=== PATIENT | male | born 1940 | race Caucasian/White ===

== ENCOUNTER 2020-04-11 08:06 | Outpatient (CLI) | payer MEDICARE, BC, OTHER ==
[2020-04-12 16:48] LABS: SARS-CoV-2 MS2 Positive; SARS-CoV-2 N Gene Negative; SARS-CoV-2 S Gene Negative; SARS-CoV-2 orf1ab Negative
== END 2020-04-11 08:07 | disposition home or self-care (01) ==
LOC: LABBT 08:06
PROVIDERS: ATTEND Family Medicine
DX: Z01.812 Encounter for preprocedural laboratory examination (principal); Z11.59 Encounter for screening for other viral diseases
CPT/HCPCS: 87635; U0003

== ENCOUNTER 2020-04-15 07:12 | Day surgery (SDC) | payer MEDICARE, BC ==
[2020-04-11 13:06] VITALS: BMI 25.1
[2020-04-15] MEDS ORDERED: EPINEPHrine 0.3 MG in Ophthalmic Irrigation Solution 500 ML IRR SCH (07:31)
[2020-04-15] MEDS ORDERED: Fentanyl 100 MCG/2 ML VIAL ONE (08:05)
[2020-04-15] MEDS ORDERED: Midazolam HCl 2 mg/2 ml Vial ONE (08:05)
[2020-04-15] MEDS ORDERED: Cyclopentolate 1% Opth Drop 2 ML BOT ONE (08:18)
[2020-04-15] MEDS ORDERED: Phenylephrine 2.5% Ophth Soln 5 ML BOT ONE (08:18)
[2020-04-15] MEDS ORDERED: Lidocaine 1% PF 5 ML VIAL ONE ×2 (10:04)
[2020-04-15] MEDS ORDERED: Triamcinolone 40 MG/ML VIAL ONE (10:04)
[2020-04-15] MEDS ORDERED: Bupivacaine PF 0.75% SDV 10 ML ONE (10:04)
[2020-04-15] MEDS ORDERED: Lidocaine 4% PF 5 ML AMP ONE (10:04)
[2020-04-15] MEDS ORDERED: PROPOFOL 200 MG/20 ML VIAL ONE (10:04)
[2020-04-15] MEDS ORDERED: CEFAZOLIN 1 GM VIAL ONE (10:04)
[2020-04-15] MEDS ORDERED: Maxitrol 0.1% Opth Oint 3.5 GM TUBE ONE (10:04)
[2020-04-15] MEDS ORDERED: Ibuprofen 600 MG TAB PO SCH (14:00)
--- NOTE | 2020-04-15 16:46 | OP ---
DATE OF PROCEDURE: 04/15/2020 PRINCIPAL PREOPERATIVE DIAGNOSIS: Posterior dislocated intraocular lens, right eye. POSTOPERATIVE DIAGNOSIS: Posterior dislocated intraocular lens, right eye. PROCEDURES PERFORMED: 1. 25-gauge pars plana vitrectomy, right eye. 2. Intraocular lens removal, right eye. 3. Akreos +19.0 diopter lens insertion, right eye. ESTIMATED BLOOD LOSS: None. SPECIMENS REMOVED: None. COMPLICATIONS: None. ANESTHESIA: LMA. SUMMARY OF OPERATION: The patient was identified in the preoperative holding area, where the correct eye being the right eye was marked for surgery. The patient was taken to the operating room, where general anesthesia was induced. The right eye was prepped and draped in usual sterile ophthalmic fashion for surgery. A wire clip lid speculum was placed. A conjunctival peritomy was fashioned from 6 o'clock to 3 o'clock. This was done with Renetta scissors. The sclera was marked at approximately 2 o'clock and 8 o'clock. The limbus was marked at 2 o'clock and 8 o'clock. Subsequently, mcintosh were placed centrally at 2 o'clock and 8 o'clock, 3 mm posterior to the limbus. Two separate mcintosh were placed 2.5 mm from that location along the curvature of the cornea. Subsequently, a 25-gauge cannula was inserted into the sclera via stab incision parallel to the limbus. A subsequent stab incision was performed at location 2.5 mm from the central location. The same set up was performed at 2 o'clock. An infusion was placed inferiorly 3.5 mm from the limbus. The infusion noted to be within the vitreous cavity prior to being turned on to an infusion pressure of 30 mmHg. The light pipe microvitrector was inserted in the eye under visualization of the BIOM viewing system. A careful core vitrectomy and peripheral shave vitrectomy were performed with the assistance of Dee. Great care was taken to relieve all vitreous from the lens. Following completion of vitrectomy, a superotemporal scleral tunnel was created with the crescent blade followed by entering the eye with the keratome. The wound was approximately 6 mm in length. The intraocular lens was subsequently grasped with MaxGrip forceps and subsequently vaulted anteriorly and taken out through the eye through the scleral tunnel. Great care prior to removal of the lens was taken to cover the cornea with Viscoat to protect the corneal endothelium. The Akreos lens +19.0 diopters was brought to the field and subsequently 8-0 Peytona-Alfredito suture was taken with . The sutures were passed through the Peytona-Alfredito suture to create a basket configuration. The lens was inserted to the eye and the sutures were removed through the pre-placed site at 2 o'clock and 8 o'clock. The suture for the lens was subsequently tied in a 3-1-1 fashion on each side and the knot was buried through a sclerotomy. The cannulas were sequentially removed and all sclerotomies were noted to be watertight. The intraocular lens was noted to have good centration. Two 8-0 Vicryl sutures were placed along the scleral tunnel to assist with closure. All wounds were noted to be watertight. The conjunctiva was subsequently closed with interrupted 8-0 sutures. Subconjunctival Ancef and Kenalog were injected. The wire clip lid speculum was removed followed by the application of TobraDex ophthalmic ointment and a light patch and shield. The patient tolerated the procedure well and was taken to outpatient recovery area in good condition. Job ID: [id number]
== END 2020-04-15 14:22 | disposition home or self-care (01) ==
LOC: SDC 07:12
PROVIDERS: ATTEND Ophthalmology Retina Specialist
PROC: 08T43ZZ Resection of Right Vitreous, Percutaneous Approach (ICD-10-PCS; principal; 2020-04-15)
PROC: 08DJ3ZZ Extraction of Right Lens, Percutaneous Approach (ICD-10-PCS; 2020-04-15)
PROC: 08PJ3JZ Removal of Synthetic Substitute from Right Lens, Percutaneous Approach (ICD-10-PCS; 2020-04-15)
PROC: 08RJ3JZ Replacement of Right Lens with Synthetic Substitute, Percutaneous Approach (ICD-10-PCS; 2020-04-15)
DX: H27.131 Posterior dislocation of lens, right eye (principal); I10 Essential (primary) hypertension; F03.90 Unspecified dementia, unspecified severity, without behavioral disturbance, psychotic disturbance, mood disturbance, and anxiety; Z87.891 Personal history of nicotine dependence; Z79.899 Other long term (current) drug therapy
CPT/HCPCS: J0171; J0690; J2001; J2250; J2704; J3010; J3301; J3490; V2632

== ENCOUNTER 2020-05-06 07:58 | Day surgery (SDC) | payer MEDICARE, BC ==
[2020-05-06] MEDS ORDERED: Cyclopentolate 1% Opth Drop 2 ML BOT ONE (08:07)
[2020-05-06] MEDS ORDERED: Phenylephrine 2.5% Ophth Soln 5 ML BOT ONE (08:07)
[2020-05-06] MEDS ORDERED: EPINEPHrine 0.3 MG in Ophthalmic Irrigation Solution 500 ML IRR SCH ×2 (08:08→08:15)
[2020-05-06] MEDS ORDERED: Phenylephrine 2.5% Ophth Soln 5 ML BOT FS SCH (08:08)
[2020-05-06] MEDS ORDERED: Cyclopentolate 1% Opth Drop 2 ML BOT FS SCH (08:08)
[2020-05-06] MEDS ORDERED: Fentanyl 100 MCG/2 ML VIAL ONE (09:28)
--- NOTE | 2020-05-06 13:39 | OP ---
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 PROCEDURES PERFORMED: 1. A 25-gauge pars plana vitrectomy, right eye. 2. Rhegmatogenous retinal detachment repair, right eye. 3. Endolaser, right eye. 4. 15% SF6 fill, right eye. ESTIMATED BLOOD LOSS: None. SPECIMENS REMOVED: None. COMPLICATIONS: None. ANESTHESIA: LMA with sub-Tenon's block. DESCRIPTION OF PROCEDURE: The patient was identified in the preoperative holding area, where the correct eye being the right eye was marked for surgery. The patient was taken to the operating room, where general anesthesia was induced. The right eye was prepped and draped in the usual sterile ophthalmic fashion for surgery. A wire-clip lid speculum was placed. A standard 25-gauge pars plana vitrectomy platform was fashioned with trocars placed approximately 3.5 mm from the limbus. Great care was taken to avoid all prior surgical sites. The infusion was noted to be within the vitreous cavity prior to being turned on to infusion pressure of 30 mmHg. The light pipe microvitrector was introduced in the eye under visualization of the BIOM viewing system. A macula involving the fovea on rhegmatogenous retinal detachment was noted from approximately 1 o'clock to 12 o'clock. A 360-degree scleral depressed vitrectomy was performed. Despite numerous scleral depressed exam of the periphery, no defects were found. A superotemporal drainage retinotomy was created with Endo-cautery, followed by opening with a flute needle. An air-fluid exchange was subsequently performed, which allowed for complete flattening of the retina. Endolaser was used to provide barricade around the retinotomy site as well as provide barrier laser system throughout the periphery of the retina. Great care was taken to provide generous panretinal photocoagulation in the superior retina, where the defect would be presumed to be found. Following Endolaser, the flute needle was reintroduced in the eye to remove the residual subretinal fluid. An air-gas exchange was performed with 15% SF6. The cannulas were sequentially removed and the supranasal, inferotemporal sclerotomies were sutured with 8-0 Vicryl suture. Following suturing, all sclerotomies were noted to be gas tight. A sub-Tenon's block was administered. The block consisted of 1:1 ratio of 4% lidocaine and 0.75% Marcaine. A total of 5 mL was administered. Subconjunctival Ancef and Kenalog were injected. The wire-clip lid speculum was removed followed by application of TobraDex ophthalmic ointment and a light patch and shield. The patient tolerated the procedure well and was taken to the outpatient recovery area in good condition. Job ID: [id number]
[2020-05-06] MEDS ORDERED: Maxitrol 0.1% Opth Oint 3.5 GM TUBE ONE (15:21)
[2020-05-06] MEDS ORDERED: Bupivacaine PF 0.75% SDV 10 ML ONE (15:21)
[2020-05-06] MEDS ORDERED: PROPOFOL 200 MG/20 ML VIAL ONE (15:21)
[2020-05-06] MEDS ORDERED: CEFAZOLIN 1 GM VIAL ONE (15:21)
[2020-05-06] MEDS ORDERED: Lidocaine 1% PF 5 ML VIAL ONE ×2 (15:21)
[2020-05-06] MEDS ORDERED: Ondansetron PF 4 MG/2 ML Vial ONE (15:21)
[2020-05-06] MEDS ORDERED: Lidocaine 4% PF 5 ML AMP ONE (15:21)
[2020-05-06] MEDS ORDERED: Triamcinolone 40 MG/ML VIAL ONE (15:21)
[2020-05-06] MEDS ORDERED: Metoclopramide HCl 10 MG/2 ML VIAL ONE (15:21)
== END 2020-05-06 12:30 | disposition home or self-care (01) ==
LOC: SDC 07:58
PROVIDERS: ATTEND Ophthalmology Retina Specialist
PROC: 08T43ZZ Resection of Right Vitreous, Percutaneous Approach (ICD-10-PCS; principal; 2020-05-06)
PROC: 08QE3ZZ Repair Right Retina, Percutaneous Approach (ICD-10-PCS; 2020-05-06)
DX: H33.011 Retinal detachment with single break, right eye (principal)
CPT/HCPCS: 67025; J0171; J0690; J2001; J2405; J2704; J2765; J3010; J3301; J3490

== ENCOUNTER 2021-04-09 15:45 | Outpatient (CLI) | payer MEDICARE, BC ==
[2021-04-10 13:03] LABS: SARS-CoV-2 PCR by NAA Not Detected (NotDetected)
== END 2021-04-09 15:46 | disposition home or self-care (01) ==
LOC: LABBT 15:45
PROVIDERS: ATTEND Ophthalmology Retina Specialist
DX: Z01.812 Encounter for preprocedural laboratory examination (principal); T85.22XA Displacement of intraocular lens, initial encounter; Z20.822 Contact with and (suspected) exposure to COVID-19
CPT/HCPCS: U0003; U0005

== ENCOUNTER 2021-04-14 11:01 | Day surgery (SDC) | payer MEDICARE, BC ==
[2021-04-13 15:42] VITALS: BMI 24.6
[~2021-04-14 11:01] MED LIST: EPINEPHrine 0.3 MG in Ophthalmic Irrigation Solution 500 ML IRR SCH; Famotidine/PF 20 mg/2ml Vial ONE; Fentanyl 100 MCG/2 ML VIAL ONE
[2021-04-14] MEDS ORDERED: Cyclopentolate 1% Opth Drop 2 ML BOT ONE (11:40)
[2021-04-14] MEDS ORDERED: Phenylephrine 2.5% Ophth Soln 5 ML BOT ONE (11:40)
[2021-04-14] MEDS ORDERED: CEFAZOLIN 1 GM VIAL ONE (14:28)
[2021-04-14] MEDS ORDERED: Ondansetron PF 4 MG/2 ML Vial ONE (14:28)
[2021-04-14] MEDS ORDERED: Metoclopramide HCl 10 MG/2 ML VIAL ONE (14:28)
[2021-04-14] MEDS ORDERED: Bupivacaine PF 0.75% SDV 10 ML ONE (14:28)
[2021-04-14] MEDS ORDERED: Lidocaine 4% PF 5 ML AMP ONE (14:28)
[2021-04-14] MEDS ORDERED: Triamcinolone 40 MG/ML VIAL ONE (14:28)
[2021-04-14] MEDS ORDERED: Lidocaine 1% PF 5 ML VIAL ONE ×2 (14:28)
[2021-04-14] MEDS ORDERED: PROPOFOL 200 MG/20 ML VIAL ONE (14:28)
[2021-04-14] MEDS ORDERED: Maxitrol 0.1% Opth Oint 3.5 GM TUBE ONE (14:28)
== END 2021-04-14 18:00 | disposition home or self-care (01) ==
LOC: SDC 11:01
PROVIDERS: ATTEND Ophthalmology Retina Specialist
PROC: 08PK3JZ Removal of Synthetic Substitute from Left Lens, Percutaneous Approach (ICD-10-PCS; principal; 2021-04-14)
PROC: 08RK3JZ Replacement of Left Lens with Synthetic Substitute, Percutaneous Approach (ICD-10-PCS; 2021-04-14)
DX: H27.132 Posterior dislocation of lens, left eye (principal); H43.392 Other vitreous opacities, left eye
CPT/HCPCS: 66986; V2632; J0171; J0690; J2405; J2704; J2765; J3010; J3301; J3490; S0028

== ENCOUNTER 2022-05-28 13:39 | Outpatient (CLI) | payer MEDICARE, BC | END 2022-05-28 13:40 | disposition home or self-care (01) | LOC: ULT 13:39 | PROVIDERS: ATTEND Internal Medicine Nephrology | DX: N18.30 Chronic kidney disease, stage 3 unspecified (principal); N28.1 Cyst of kidney, acquired; N40.0 Benign prostatic hyperplasia without lower urinary tract symptoms | CPT/HCPCS: 76770 ==

== ENCOUNTER 2024-11-10 19:33 | Inpatient (IN) | payer MEDICARE ==
[2024-11-10 20:48] LABS: #Basophils 0.03 10x3/uL (0.0-0.2); %Basophils 0.2 % (0.0-1.0); %Eosinophils 0.2 % (0.0-10.0); %Lymphocytes 9.8 % (21.0-51.0); %Monocytes 7.6 % (0.0-10.0); %Neutrophils 80.7 % (42.0-75.0); Hematocrit 39.2 % (42.0-52.0); Hemoglobin 13.2 g/dL (14.0-18.0); Mean Corpuscular HGB CONC 33.7 g/dL (32.0-36.0); Mean Corpuscular Hemoglobin 29.5 pg (27.0-31.0); Mean Corpuscular Volume 87.7 fL (78.0-98.0); Platelet Count 470 10x3/uL (130-400); RBC Distribution Width 14.6 % (11.5-14.5); Red Blood Cell (RBC) Count 4.47 mill/uL (4.70-6.10)
[2024-11-10] MEDS ORDERED: dilTIAZem 25 MG/5 ML VIAL ONE (20:57)
[2024-11-10] MEDS ORDERED: Magnesium 2 GM/50 ML BAG (IN WATER) ONE (20:57)
[2024-11-10 21:07] LABS: ALT (SGPT) 11 U/L (8-55); AST (SGOT) 15 U/L (5-34); Albumin 2.9 g/dL (3.4-4.8); Alkaline Phosphatase 69 U/L (40-110); Anion Gap 20 mmol/L (10-20); BUN (Urea Nitrogen) 78 mg/dL (8.4-25.7); Bilirubin, Total 0.5 mg/dL (0.2-1.2); Calc. Creatinine Clearance 0 mL/min (70-130); Calcium 9.6 mg/dL (7.8-10.44); Carbon Dioxide 15 mmol/L (23-31); Chloride 108 mmol/L (98-107); Estimated GFR 10; Globulin 5.1 g/dL (2.4-3.5); Glucose 126 mg/dL (83-110); Potassium 4.2 mmol/L (3.5-5.1); Sodium 139 mmol/L (136-145)
[2024-11-10 21:09] LABS: Troponin I 0.023 ng/mL (< 0.028)
[2024-11-10 22:19] LABS: Bilirubin Negative (Negative); Blood, Urine 3+ (Negative); CAUTI Indications for Culture Dysuria,urgency,freq; Clarity Turbid (Clear); Glucose, Urine (Dipstick) Normal (Negative); Ketone, Urine Negative (Negative); Leukocyte 500 Leu/uL (Negative); Nitrite Negative (Negative); Protein, Urine (Dipstick) 10 mg/dL (Neg-Trace); RBC/HPF Greater than 50 HPF (0-3); Specific Gravity, Urine 1.015 (1.002-1.036); Squamous Epithelial None Seen HPF (0-3); Urobilinogen Normal mg/dL (Less than 2); WBC/HPF 0-3 HPF (0-3)
[2024-11-10 22:28] LABS: Bacteria/HPF 1+ HPF (None Seen)
[2024-11-10 22:30] LABS: Urine Culture Reflex No No
[2024-11-10] MEDS ORDERED: Sodium Chloride 0.9% 100 ML ONE (23:26)
[2024-11-10] MEDS ORDERED: cefTRIAXone (ROCEPHIN) 2 GM VIAL ONE (23:26)
[2024-11-10 23:52] LABS: Lactic Acid 1.83 mmol/L (0.5-2.2)
[2024-11-11] MEDS ORDERED: Ondansetron PF 4 MG/2 ML Vial IVP PRN (01:47)
[2024-11-11] MEDS ORDERED: Ondansetron ODT 4 MG TAB PO PRN (01:47)
[2024-11-11] MEDS ORDERED: Azithromycin 500 MG VIAL ONE (01:53)
[2024-11-11] MEDS ORDERED: Ipratropium/Albuterol 3 ML NEB NEB PRN (02:44)
[2024-11-11] MEDS ORDERED: Heparin 25,000 units/D5W 500 ML ONE (03:22)
[2024-11-11] MEDS ORDERED: Sodium Bicarb 50 MEQ/50 ML Abboject 8.4% SYRINGE ONE (03:22)
[2024-11-11] MEDS ORDERED: Heparin 5,000 UNITS/ML VIAL ONE ×2 (03:22→03:24)
[2024-11-11] MEDS: Sodium Chloride 0.9% 1,000 ML IV SCH (03:29)
[2024-11-11] MEDS: Sodium Bicarb 50 MEQ/50 ML Abboject 8.4% SYRINGE IVP SCH (03:29)
[2024-11-11 03:36] LABS: #Basophils Less than 0.03 10x3/uL (0.0-0.2); %Basophils 0.1 % (0.0-1.0); %Eosinophils 0.2 % (0.0-10.0); %Lymphocytes 9.3 % (21.0-51.0); %Monocytes 8.1 % (0.0-10.0); %Neutrophils 80.7 % (42.0-75.0); Hematocrit 31.5 % (42.0-52.0); Hemoglobin 10.5 g/dL (14.0-18.0); Mean Corpuscular HGB CONC 33.3 g/dL (32.0-36.0); Mean Corpuscular Hemoglobin 29.6 pg (27.0-31.0); Mean Corpuscular Volume 88.7 fL (78.0-98.0); Platelet Count 377 10x3/uL (130-400); RBC Distribution Width 14.5 % (11.5-14.5); Red Blood Cell (RBC) Count 3.55 mill/uL (4.70-6.10)
[2024-11-11 03:38] LABS: Hematocrit 33.9 % (42.0-52.0); Hemoglobin 11.2 g/dL (14.0-18.0); Platelet Count 403 10x3/uL (130-400)
[2024-11-11 03:52] LABS: INR-International Normal Ratio 1.3; Prothrombin Time 16.7 sec (12.0-14.7)
[2024-11-11 03:53] LABS: PTT 31.8 sec (22.9-36.1)
[2024-11-11 03:59] LABS: Anion Gap 14 mmol/L (10-20); BUN (Urea Nitrogen) 51 mg/dL (8.4-25.7); Calc. Creatinine Clearance 19 mL/min (70-130); Calcium 8.1 mg/dL (7.8-10.44); Carbon Dioxide 17 mmol/L (23-31); Chloride 114 mmol/L (98-107); Estimated GFR 20; Glucose 93 mg/dL (83-110); Potassium 3.4 mmol/L (3.5-5.1); Sodium 142 mmol/L (136-145)
[2024-11-11] MEDS: Heparin 10,000 UNITS/ 10 ML VIAL SLOW IVP SCH (04:45)
[2024-11-11 04:50] LABS: Legionella Urinary Ag Negative (Negative); Strep pneumo Urine Ag NEGATIVE (NEGATIVE)
[2024-11-11] MEDS: Heparin 25,000 units/D5W 500 ML IVPB SCH (04:50)
[2024-11-11 09:09] LABS: PTT 214.6 sec (22.9-36.1)
[2024-11-11] MEDS: Potassium Chloride 20 MEQ TAB PO SCH (10:30)
[2024-11-11] MEDS: Memantine 10 MG TAB PO SCH (12:15)
[2024-11-11] MEDS: Gemfibrozil 600 MG TAB PO SCH (12:15)
[2024-11-11] MEDS: Aspirin 81 mg Enteric Coated Tablet PO SCH (12:15)
[2024-11-11] MEDS: Escitalopram Oxalate 20 mg Tablet PO SCH (12:15)
[2024-11-11] MEDS ORDERED: Aspirin 81 mg Enteric Coated Tablet ONE (14:43)
[2024-11-11] MEDS ORDERED: Potassium Bicarbonate/Cit Ac 20 MEQ TAB ONE (14:43)
[2024-11-11] MEDS ORDERED: Aspirin Chewable 81 MG TAB ONE (15:02)
[2024-11-11] MEDS: Sodium Chloride 1 GM TAB PO SCH (15:43)
[2024-11-11 18:46] VITALS: BMI 23.6
[2024-11-11] MEDS: Timolol 0.5% Ophth Soln 5 ml Bottle EA EYE SCH (21:31)
[2024-11-11] MEDS: Tamsulosin HCl 0.4 MG CAP PO SCH (21:32)
[2024-11-11] MEDS: Donepezil HCl 10 MG TAB PO SCH (21:32)
[2024-11-11] MEDS: Doxycycline 100 MG CAP PO SCH (21:32)
[2024-11-11] MEDS: cefTRIAXone\\ROCEPHIN 1 GM in Sodium Chloride 0.9% 100 ML IVPB SCH (23:15)
[2024-11-12 04:42] LABS: #Basophils Less than 0.03 10x3/uL (0.0-0.2); %Basophils 0.2 % (0.0-1.0); %Eosinophils 1.6 % (0.0-10.0); %Lymphocytes 11.3 % (21.0-51.0); %Monocytes 8.8 % (0.0-10.0); %Neutrophils 76.5 % (42.0-75.0); Hemoglobin 11.6 g/dL (14.0-18.0); Mean Corpuscular HGB CONC 34.1 g/dL (32.0-36.0); Mean Corpuscular Hemoglobin 29.6 pg (27.0-31.0); Mean Corpuscular Volume 86.7 fL (78.0-98.0); Mean Platelet Volume 9.4 fL (7.4-10.4); Platelet Count 411 10x3/uL (130-400); RBC Distribution Width 14.1 % (11.5-14.5); Red Blood Cell (RBC) Count 3.92 mill/uL (4.70-6.10)
[2024-11-12 05:25] LABS: Anion Gap 14 mmol/L (10-20); BUN (Urea Nitrogen) 16 mg/dL (8.4-25.7); Calc. Creatinine Clearance 71 mL/min (70-130); Calcium 8.2 mg/dL (7.8-10.44); Carbon Dioxide 21 mmol/L (23-31); Chloride 114 mmol/L (98-107); Estimated GFR 88; Glucose 94 mg/dL (83-110); Potassium 3.4 mmol/L (3.5-5.1); Sodium 146 mmol/L (136-145)
[2024-11-12] MEDS: Levothyroxine Sodium 25 MCG TAB PO SCH (05:51)
[2024-11-12] MEDS ORDERED: Electrolyte Replacement Protocol 1 EACH FS PRN (08:13)
[2024-11-12] MEDS ORDERED: Electrolyte Replacement Protocol FS PRN (08:30)
[2024-11-12] MEDS: Potassium Chloride 20 MEQ TAB PO SCH (08:46)
[2024-11-12] MEDS: Cholecalciferol 1,000 UNITS (25 MCG) TAB PO SCH (08:46)
[2024-11-12] MEDS: Pantoprazole 40 MG DR.TAB PO SCH (08:46)
[2024-11-12] MEDS: Cyanocobalamin (Vitamin B-12) 1,000 MCG TAB PO SCH (08:46)
[2024-11-12] MEDS ORDERED: Sodium Chloride 1 GM TAB PO SCH (09:31)
[2024-11-12 10:18] LABS: Magnesium 1.9 mg/dL (1.6-2.6)
[2024-11-12] MEDS: Magnesium 2 GM/50 ML(in water) 2 GM in Premix 1 BAG IVPB SCH (13:10)
[2024-11-12] MEDS: Dextrose 5% in Water 1,000 ML IV SCH (13:19)
[2024-11-12 14:28] VITALS: BMI 23.6
[2024-11-12 15:10] LABS: Potassium 3.7 mmol/L (3.5-5.1)
[2024-11-12 15:20] LABS: Phosphorus 1.4 mg/dL (2.3-4.7)
[2024-11-12] MEDS: Potassium Phosphate 30 MMOL in Sodium Chloride 0.9% 250 ML 250 ML IVPB SCH (17:35)
[2024-11-13 04:43] LABS: #Basophils 0.04 10x3/uL (0.0-0.2); %Basophils 0.4 % (0.0-1.0); %Eosinophils 5.1 % (0.0-10.0); %Lymphocytes 16.2 % (21.0-51.0); %Monocytes 8.6 % (0.0-10.0); %Neutrophils 67.4 % (42.0-75.0); Hematocrit 34.3 % (42.0-52.0); Hemoglobin 11.5 g/dL (14.0-18.0); Mean Corpuscular HGB CONC 33.5 g/dL (32.0-36.0); Mean Corpuscular Hemoglobin 29.4 pg (27.0-31.0); Mean Corpuscular Volume 87.7 fL (78.0-98.0); Mean Platelet Volume 9.3 fL (7.4-10.4); Platelet Count 443 10x3/uL (130-400); RBC Distribution Width 14.1 % (11.5-14.5); Red Blood Cell (RBC) Count 3.91 mill/uL (4.70-6.10)
[2024-11-13 05:02] LABS: Anion Gap 12 mmol/L (10-20); BUN (Urea Nitrogen) 17 mg/dL (8.4-25.7); Calc. Creatinine Clearance 72 mL/min (70-130); Calcium 8.1 mg/dL (7.8-10.44); Carbon Dioxide 21 mmol/L (23-31); Chloride 112 mmol/L (98-107); Estimated GFR 89; Glucose 129 mg/dL (83-110); Magnesium 1.8 mg/dL (1.6-2.6); Potassium 3.6 mmol/L (3.5-5.1); Sodium 141 mmol/L (136-145)
[2024-11-13 05:09] LABS: Phosphorus 2.2 mg/dL (2.3-4.7)
[2024-11-13] MEDS: Magnesium 2 GM/50 ML(in water) 2 GM in Premix 1 BAG IVPB SCH (10:38)
[2024-11-13] MEDS: Potassium Phosphate 30 MMOL in Sodium Chloride 0.9% 250 ML 250 ML IVPB SCH (10:46)
[2024-11-13] MEDS: Senokot S 8.6-50 MG TAB PO SCH (20:02)
[2024-11-14 05:07] LABS: #Basophils 0.08 10x3/uL (0.0-0.2); %Basophils 0.6 % (0.0-1.0); %Eosinophils 4.7 % (0.0-10.0); %Lymphocytes 17.4 % (21.0-51.0); %Monocytes 8.2 % (0.0-10.0); %Neutrophils 66.1 % (42.0-75.0); Hematocrit 39.2 % (42.0-52.0); Hemoglobin 12.7 g/dL (14.0-18.0); Mean Corpuscular HGB CONC 32.4 g/dL (32.0-36.0); Mean Corpuscular Hemoglobin 29.3 pg (27.0-31.0); Mean Corpuscular Volume 90.3 fL (78.0-98.0); Mean Platelet Volume 9.3 fL (7.4-10.4); Platelet Count 452 10x3/uL (130-400); Red Blood Cell (RBC) Count 4.34 mill/uL (4.70-6.10)
[2024-11-14 05:26] LABS: Anion Gap 13 mmol/L (10-20); BUN (Urea Nitrogen) 17 mg/dL (8.4-25.7); Calc. Creatinine Clearance 66 mL/min (70-130); Calcium 8.5 mg/dL (7.8-10.44); Carbon Dioxide 21 mmol/L (23-31); Chloride 108 mmol/L (98-107); Estimated GFR 86; Glucose 91 mg/dL (83-110); Magnesium 1.7 mg/dL (1.6-2.6); Phosphorus 2.5 mg/dL (2.3-4.7); Potassium 4.1 mmol/L (3.5-5.1); Sodium 138 mmol/L (136-145)
[2024-11-14] MEDS: Magnesium 2 GM/50 ML(in water) 2 GM in Premix 1 BAG IVPB SCH (09:29)
[2024-11-15] MEDS: Acetaminophen 325 MG TAB PO PRN (10:56)
[2024-11-15] MEDS: guaiFENesin/Codeine 200 mg/20 mg 10 ml Cup PO PRN (14:08)
[2024-11-15 16:09] VITALS: BP 116/68; TEMP 99.9
== END 2024-11-15 17:02 | disposition home or self-care (01) | DRG 871 ==
LOC: ERS 19:33 → ERHOLD 11-11 00:13 → 2NO 11-11 18:24
PROVIDERS: ADMIT Student in an Organized Health Care Education/Training Program; ATTEND Internal Medicine
DX: A41.9 Sepsis, unspecified organism (principal); J18.9 Pneumonia, unspecified organism; N17.9 Acute kidney failure, unspecified; E87.20 Acidosis, unspecified; J90 Pleural effusion, not elsewhere classified; E87.0 Hyperosmolality and hypernatremia; E87.6 Hypokalemia; E83.39 Other disorders of phosphorus metabolism; E03.9 Hypothyroidism, unspecified; R53.81 Other malaise; I10 Essential (primary) hypertension; I48.91 Unspecified atrial fibrillation; G31.84 Mild cognitive impairment of uncertain or unknown etiology; I95.9 Hypotension, unspecified; Z66 Do not resuscitate; I08.1 Rheumatic disorders of both mitral and tricuspid valves; R33.9 Retention of urine, unspecified; R79.1 Abnormal coagulation profile; Z85.828 Personal history of other malignant neoplasm of skin; Z98.890 Other specified postprocedural states
CPT/HCPCS: 36415; 36416; 51702; 71045; 74176; 76770; 78451; 80048; 80053; 81001; 83605; 83735; 83880; 84100; 84145; 84300; 84484; 85014; 85018; 85025; 85049; 85379; 85610; 85730; 87040; 87086; 87428; 87449; 87899; 93005; 93306; 93970; 96374; 96375; A9540; J0456; J0696; J1644; J3475; J7030; J7050; J7070